=== PATIENT | female | born 1995 | race African-American/Black ===

== ENCOUNTER 2017-12-24 10:16 | Emergency (ER) | payer OTHER ==
[~2017-12-24] VITALS: Ht 172.7 cm; Wt 76.4 kg
[2017-12-24 10:27] VITALS: BP 119/70
--- NOTE | 2017-12-24 10:51 | PHYS DOC ---
Past History Past Medical History: No Pertinent History Past Surgical History: Alcohol Use: None Drug Use: None Adult General Chief Complaint Chief Complaint: BACK PAIN OR INJURY HPI HPI 22-year-old female presents with right lower back pain. The patient is 27 weeks presents with right lower back pain. She denies any difficulty or concern to the babies. No vaginal bleeding. She works as a computer mechanic and has noticed this pain increasing over the last couple of days. She is wondering if she needs to take time off for do anything different so that her condition will improve. She understands that she is limited types of medication. She denies fever or chills. She has no trauma. Review of Systems Review of Systems Constitutional: Denies fever or chills [] Eyes: Denies change in visual acuity, redness, or eye pain [] HENT: Denies nasal congestion or sore throat [] Respiratory: Denies cough or shortness of breath [] Cardiovascular: No additional information not addressed in HPI [] GI: Denies abdominal pain, nausea, vomiting, bloody stools or diarrhea [] : Denies dysuria or hematuria [] Musculoskeletal: Low back pain[] Integument: Denies rash or skin lesions [] Neurologic: Denies headache, focal weakness or sensory changes [] Endocrine: Denies polyuria or polydipsia [] All other systems were reviewed and found to be within normal limits, except as documented in this note. Allergies Allergies Allergies Coded Allergies Type Severity Reaction Last Updated Verified No Known Drug Allergies 12/24/17 No Physical Exam Physical Exam Constitutional: Well developed, well nourished, no acute distress, non-toxic appearance. [] HENT: Normocephalic, atraumatic, bilateral external ears normal, oropharynx moist, no oral exudates, nose normal. [] Eyes: PERRLA, EOMI, conjunctiva normal, no discharge. [] Neck: Normal range of motion, no tenderness, supple, no stridor. [] Cardiovascular:Heart rate regular rhythm, no murmur [] Lungs & Thorax: Bilateral breath sounds clear to auscultation [] Abdomen: Bowel sounds normal, soft, no tenderness, no masses, no pulsatile masses. [] Skin: Warm, dry, no erythema, no rash. [] Back: Right sacroiliac joint tenderness[] Extremities: No tenderness, no cyanosis, no clubbing, ROM intact, no edema. [] Neurologic: Alert and oriented X 3, normal motor function, normal sensory function, no focal deficits noted. [] Psychologic: Affect normal, judgement normal, mood normal. [] Current Patient Data Vital Signs Vital Signs Date Time Temp Pulse Resp B/P (MAP) Pulse Ox O2 Delivery O2 Flow Rate FiO2 12/24/17 10:27 97.9 86 18 100 Room Air EKG EKG [] Radiology/Procedures Radiology/Procedures [] Course & Med Decision Making Course & Med Decision Making Pertinent Labs and Imaging studies reviewed. (See chart for details) The patient has right sacroiliac joint dysfunction. I explained mechanics of this to the patient. I advised her to use Tylenol for pain, perform exercises to realign and strengthen the joint, and ice it frequently. 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 [] Dragon Disclaimer Dragon Disclaimer This electronic medical record was generated, in whole or in part, using a voice recognition dictation system. Departure Departure: Impression: Primary Impression: Sacroiliac joint dysfunction of right side Disposition: 01 HOME, SELF-CARE Condition: STABLE Patient Instructions: Sacroiliac Joint Dysfunction TARA LONG DO Dec 24, 2017 10:51
== END 2017-12-24 10:55 | disposition home or self-care (01) ==
LOC: ER 10:16
DX: O26.892 Other specified pregnancy related conditions, second trimester (principal); M46.1 Sacroiliitis, not elsewhere classified; Z3A.27 27 weeks gestation of pregnancy
CPT/HCPCS: 99281